=== PATIENT | female | born 1975 | race Caucasian/White ===

== ENCOUNTER 2018-02-24 12:23 | Outpatient (REF) | payer OTHER, SELFPAY ==
--- NOTE | 2018-02-24 08:45 | PAPFT_PTH ---
PATIENT: Poornima Good LOC: [facility] U#:[id number] AGE/SX: 42/F ROOM: RE02/24/[address]: Dorene Green NP : 1975 BED: DIS: 02/24/2018 SPEC #: [id number] RECD: 02/24/18 12:53 STATUS: JAMES REQ #: [id number] DANII: 02/24/18 08:[address]: Dorene Green NP DEPT: [facility] Cytology RECD BY: Eva Slade ENTERED: 02/24/18 12:53 SP TYPE: PAPFT OTHR DR: Sue Hernandez, CRAFT ARTIST Tissues: 1 - CX/ENDOCX FOR PAP SMEARS Procedures: PAP THIN PREP/[facility] Screening HPV DNA PROBE Comments: [id number]
== END 2018-02-24 12:43 ==
LOC: LBN 12:23
PROVIDERS: PCP Nurse Practitioner Family; Visit Provider Nurse Practitioner Women's Health
DX: Z12.4 Encounter for screening for malignant neoplasm of cervix (principal); Z11.51 Encounter for screening for human papillomavirus (HPV)
CPT/HCPCS: 88142; 87624

== ENCOUNTER 2018-03-06 00:57 | Outpatient (CLI) | payer OTHER, SELFPAY ==
--- NOTE | 2018-03-06 07:45 | DI.MAMMO_ITS ---
SYMPTOM/DIAGNOSIS: BASELINE, SCREENING, Z12.31 MAMMOGRAMS: Mammograms were interpreted according to the usual protocol including computer analysis with CAD system, tomosynthesis and C view imaging. There are no priors for comparison. Breast density B. No masses or microcalcifications are seen. There is nothing to suggest malignancy. IMPRESSION: Negative mammogram. Routine screening is recommended. Category I. MQSA ASSESSMENT OF FINDINGS: Negative. Category 1. Patient will receive a letter notifying them of these results. BI-RADS category B. There are scattered areas of fibroglandular density.
== END 2018-03-06 01:17 ==
PROVIDERS: PCP Nurse Practitioner Family; Visit Provider Nurse Practitioner Women's Health
DX: Z12.31 Encounter for screening mammogram for malignant neoplasm of breast (principal)
CPT/HCPCS: 77063; 77067

== ENCOUNTER 2018-03-24 02:15 | Outpatient (CLI) | payer OTHER, SELFPAY ==
[2018-03-24 09:10] LABS: ALT 15 U/L (12-78); AST 13 U/L (15-37); Albumin 3.9 g/dL (3.4-5.0); Alkaline Phosphatase 64 U/L (46-116); Anion Gap 9.2 mmol/L (3-11); BUN 10 mg/dL (7-18); Bilirubin, Total 0.7 mg/dL (0.2-1.0); CO2 25.8 mmol/L (21.0-32.0); CREATININE 0.95 mg/dL (0.55-1.02); Chloride 104 mmol/L (98-107); Cholesterol 207 mg/dL (50-200); Glucose 91 mg/dL (70-100); HDL Cholesterol 51 mg/dL (40-60); LDL CHOLESTEROL 144 mg/dL (<100); Potassium 4.1 mmol/L (3.5-5.1); Sodium 139 mmol/L (136-145); TSH (W/Ref FT4) 0.74 uIU/mL (0.358-3.74); Total Protein 7.6 g/dL (6.4-8.2); Triglyceride 67 mg/dL (30-150)
== END 2018-03-24 02:35 ==
PROVIDERS: PCP Nurse Practitioner Family; Visit Provider Nurse Practitioner Family
DX: Z13.220 Encounter for screening for lipoid disorders (principal); Z13.1 Encounter for screening for diabetes mellitus; R00.2 Palpitations
CPT/HCPCS: 36415; 80053; 80061; 83721; 84443

== ENCOUNTER 2024-06-20 10:12 | Outpatient (CLI) | payer BC, SELFPAY ==
--- NOTE | 2024-06-20 10:00 | RT.EKG_ITS ---
APPROVED REPORT Exam: Resting ECG Reason for Exam: Palpitations Patient Location: O HR:60 bpm ECG Measurements Heart Rate 60 AXIS WA 118 P 51 QRSd 102 QRS -3 QT 422 T 4 QTc 422 Conclusion Sinus rhythm...normal P axis, V-rate 50- 99 Normal Electrocardiogram
== END 2024-06-20 10:13 | disposition home or self-care (01) ==
LOC: DI.KIM 10:12
PROVIDERS: PCP Nurse Practitioner Family; Visit Provider Nurse Practitioner Family
DX: R00.2 Palpitations (principal)
CPT/HCPCS: 93010

== ENCOUNTER 2024-06-27 02:23 | Outpatient (CLI) | payer BC, SELFPAY ==
[2024-06-27 07:34] LABS: HCT 44.1 % (36.0-46.0); HGB 14.9 g/dL (11.2-15.7); MCH 29.2 pg (27.0-33.0); MCHC 33.8 % (32.0-36.0); MCV 87 fL (80-95); MPV 10.1 fL (8.0-11.0); Platelet Count 245 10^3/uL (130-400); RDW 11.9 % (11.7-14.6); RDW-SD 37.6 fL; WBC 5.82 10^3/uL (4.4-10.8)
[2024-06-27 08:17] LABS: Calculated LDL 143 mg/dL (<100); Cholesterol 212 mg/dL (<200); HDL Cholesterol 54 mg/dL (40-60); TSH (W/Ref FT4) 0.66 uIU/mL (0.36-3.74); Triglyceride 76 mg/dL (<150); Vitamin D 25 Total 11.9 ng/mL (30-100)
== END 2024-06-27 02:24 | disposition home or self-care (01) ==
LOC: LBO 02:23
PROVIDERS: PCP Nurse Practitioner Family; Visit Provider Nurse Practitioner Family
DX: E78.5 Hyperlipidemia, unspecified (principal); R00.2 Palpitations; F41.9 Anxiety disorder, unspecified
CPT/HCPCS: 36415; 80061; 82306; 85027; 84443

== ENCOUNTER 2024-07-26 09:01 | Outpatient (REF) | payer BC, SELFPAY | END 2024-07-26 09:02 | disposition home or self-care (01) | LOC: LBN 09:01 | PROVIDERS: PCP Nurse Practitioner Family; Visit Provider Obstetrics & Gynecology | DX: B37.9 Candidiasis, unspecified (principal); Z12.4 Encounter for screening for malignant neoplasm of cervix | CPT/HCPCS: 88142; 87624 ==

== ENCOUNTER 2024-07-27 00:14 | Outpatient (CLI) | payer BC, SELFPAY ==
--- NOTE | 2024-07-27 06:00 | DI.MAMMO_ITS ---
Exam(s) MAMMO SCREENING EXAM: MAMMO SCREENING CLINICAL HISTORY: screening,z12.39 TECHNIQUE: Mammograms were interpreted according to the usual protocol including computer analysis w [email or web address] CAD system, tomosynthesis and C-view imaging. COMPARISON: 2018 FINDINGS: The breasts are composed of scattered fibroglandular densities, Breast Density category B. No suspicious masses or suspicious microcalcifications are seen. There is a question of an area of no dularity versus overlying tissue in the upper outer quadrant of the right breast. No skin thickening or abnormal axillary lymph nodes are seen. There has been no significant change appearance of the left breast from prior exams. IMPRESSION: Right breast: BI-RADS Category 0 - Incomplete: Need additional imaging evaluation Left breast: Yearly screening mammography is recommended. Breast Density - Category B, scattered fibroglandular densities. A negative radiographic report should not delay biopsy if a dominant or clinically suspicious mass is present. Up to ten percent of cancers are not identified on mammography. A negative report may reinforce clinical impression. Adenosis and dense breasts may obscure an underlying neoplasm. False positive reports average 6 to 10%. Patient will receive a letter notifying them of these results.
== END 2024-07-27 00:34 ==
LOC: DI 00:14
PROVIDERS: PCP Nurse Practitioner Family; Visit Provider Obstetrics & Gynecology
DX: Z12.31 Encounter for screening mammogram for malignant neoplasm of breast (principal); R92.323 Mammographic fibroglandular density, bilateral breasts
CPT/HCPCS: 77063; 77067

== ENCOUNTER 2024-07-31 00:39 | Outpatient (CLI) | payer BC, SELFPAY ==
--- NOTE | 2024-07-31 | DI.MAMMO_ITS ---
Exam(s) MG MAMMO SCREEN CALL BACK UNI US BREAST RT COMPLETE EXAM: MAMMO SCREEN CALL BACK UNI-RIGHT AND COMPLETE RIGHT BREAST ULTRASOUND CLINICAL HISTORY: F/U ABNL MAMMO, R92.8,? AREA OF NODULARITY OR OVERLYING FIBROGLANDULAR. TECHNIQUE: Unilateral RIGHT BREAST spot mammographic images obtained with 3D tomosynthesisand utiliz ing computer aided detection (CAD). . Complete RIGHT breast Ultrasound was also performed, including all 4 quadrants, the retroareolar judi on, and the ipsilateral axilla. COMPARISON: Prior mammograms were reviewed. This additional imaging was performed due to findings described on the recent screening mammogram of 07/27/2024. FINDINGS: DIAGNOSTIC MAMMOGRAM: Additional mammographic views performed todayrender this area less concerning and similar to the 2018 study. COMPLETE RIGHT BREAST ULTRASOUND: Ultrasound performed today reveals no evidence of solid or significant cystic lesions in all 4 quadra nts of the right breast.. Scanning of the ipsilateral axilla reveals no significant adenopathy. IMPRESSION: 1. No radiographic evidence of malignancy in the right breast. 2. Negative complete right breast ultrasound Appropriate follow-up is to keep this patient on a yearly mammogram schedule, with earlier imaging i f a self detected breast change is noted. The patient was informed of these findings and recommendations by myself prior to leaving the departm ent today. BI-RADS Category 2 - Benign Findings Breast Density - Category B - Scattered areas of fibroglandular density Breast density Category C or D implies that the patient has dense breast tissue. Dense breast tissue can make it harder to find cancer on a mammogram. Dense breast tissue is also associated with an incr eased risk of breast cancer. This information about the result of the mammogram report was provided to the patient to raise their awareness. Use this report when you speak with the patient about their risks for breast cancer, which includes their family history. At that time, you may recommend additional screening tests (Ultrasoun d or MRI) as these tests may add significant information. A negative radiographic report should not delay biopsy if a dominant or clinically suspicious mass is present. Up to ten percent of cancers are not identified on mammography. A negative report may reinforce clinical impression. Adenosis and dense breasts may obscure an underlying neoplasm. False positive reports average 6 to 10%. Patient will receive a letter notifying them of these results.
== END 2024-07-31 00:59 ==
LOC: DI 00:39
PROVIDERS: PCP Nurse Practitioner Family; Visit Provider Obstetrics & Gynecology
DX: Z12.31 Encounter for screening mammogram for malignant neoplasm of breast (principal); R92.8 Other abnormal and inconclusive findings on diagnostic imaging of breast; R92.323 Mammographic fibroglandular density, bilateral breasts; D24.1 Benign neoplasm of right breast
CPT/HCPCS: 76642; 77063; 77067